=== PATIENT | male | born 1980 | race American Indian/Alaskan Native ===

== ENCOUNTER 2020-05-01 16:43 | Emergency (ER) | payer SELFPAY ==
[2020-05-01 16:51] VITALS: BP 114/66
== END 2020-05-01 20:27 | disposition left against medical advice (07) ==
LOC: ED 16:43
DX: S61.214A Laceration without foreign body of right ring finger without damage to nail, initial encounter (principal); Z53.21 Procedure and treatment not carried out due to patient leaving prior to being seen by health care provider; W25.XXXA Contact with sharp glass, initial encounter; Y93.89 Activity, other specified; Y92.89 Other specified places as the place of occurrence of the external cause; Y99.8 Other external cause status